=== PATIENT | female | born 1970 | race American Indian/Alaskan Native ===

== ENCOUNTER 2017-05-12 07:38 | Outpatient (CLI) | payer BC ==
--- NOTE | 2017-05-12 14:31 | Mammography Report ---
BILATERAL DIGITAL SCREENING MAMMOGRAM with CAD: 05/12/17 07:38:00 CLINICAL: Routine screening. COMPARISON:05/03/16 and 05/01/15 FINDINGS: The breasts are almost entirely fatty.A right inner asymmetry on the CC view is unchanged compared to the 2015 exam. No mass, architectural distortion or suspicious calcifications. IMPRESSION: No mammographic evidence of malignancy. BI-RADS CATEGORY: 2 -- Benign RECOMMENDATION: Routine mammographic screening in one year. COMMENT: Patient follow-up letters are generated by our [employer] application.
== END 2017-05-12 07:39 | disposition home or self-care (01) ==
LOC: MAMMO 07:38
PROVIDERS: ATTEND Obstetrics & Gynecology
DX: Z12.31 Encounter for screening mammogram for malignant neoplasm of breast (principal)
CPT/HCPCS: 77067; G0202

== ENCOUNTER 2018-06-01 09:14 | Outpatient (CLI) | payer BC ==
--- NOTE | 2018-06-01 14:44 | Mammography Report ---
BILATERAL DIGITAL SCREENING MAMMOGRAM with CAD: 06/01/18 09:14:00 CLINICAL: Routine screening. COMPARISON:05/12/17 FINDINGS: There are scattered areas of fibroglandular density. No mass, architectural distortion or suspicious calcifications. IMPRESSION: No mammographic evidence of malignancy. BI-RADS CATEGORY: 2 -- Benign RECOMMENDATION: Routine mammographic screening in one year. COMMENT: Patient follow-up letters are generated by our [employer] application.
== END 2018-06-01 09:15 | disposition home or self-care (01) ==
LOC: MAMMO 09:14
PROVIDERS: ATTEND Obstetrics & Gynecology
DX: Z12.31 Encounter for screening mammogram for malignant neoplasm of breast (principal)
CPT/HCPCS: 77067

== ENCOUNTER 2020-11-04 07:57 | Outpatient (CLI) | payer BC ==
--- NOTE | 2020-11-04 10:03 | Mammography Report ---
DIGITAL SCREENING MAMMOGRAM WITH CAD, 11/04/2020 CLINICAL INFORMATION / INDICATION: Routine screening mammography. TECHNIQUE: Digital bilateral 2D mammography was obtained in the craniocaudal and mediolateral obliqu e projections. This examination was interpreted with the benefit of Computer-Aided Detection analysis . COMPARISON: 09/18/2019, 06/01/2018 FINDINGS: Breast Density: There are scattered areas of fibroglandular density. No dominant mass, suspicious calcifications, or architectural distortion in either breast. Bilateral benign-appearing calcifications not significantly changed. IMPRESSION: No mammographic evidence of malignancy. Follow up recommendation: Routine yearly BI-RADS Category 2: Benign. A "normal" or negative report should not discourage follow up or biopsy of a clinically significant f inding. A written summary of these findings will be mailed to the patient. The patient will be entered into a mammography reporting system which will generate a reminder letter for the patient's next appointmen t at the appropriate interval. The [employer] recommends yearly mammograms starting at age 40 and continuing as l aylin as a woman is in good health. Breast MRI is recommended for women with an approximate 20-25% or greater lifetime risk of breast cancer, including women with a strong family history of breast or ova beverly cancer or who have been treated for Hodgkin's disease. Signer Name: Zach Aquino MD Signed: 11/04/2020 9:58 AM Workstation Name: [id number]
== END 2020-11-04 07:58 | disposition home or self-care (01) ==
LOC: MAMMO 07:57
PROVIDERS: ATTEND Obstetrics & Gynecology
DX: Z12.31 Encounter for screening mammogram for malignant neoplasm of breast (principal)
CPT/HCPCS: 77067

== ENCOUNTER 2021-01-21 13:38 | Emergency (ER) | payer BC ==
[2021-01-21 13:49] VITALS: BP 135/87
--- NOTE | 2021-01-21 14:06 | XRay Report ---
CHEST 2 VIEWS INDICATION: chest pain. COMPARISON: None FINDINGS: Support devices: None. Heart: Within normal limits. Lungs/pleura: No acute air space or interstitial disease. No pneumothorax. Additional findings: None. IMPRESSION: No acute findings. Signer Name: Jovani Mccoy Jr, MD Signed: 01/21/2021 2:02 PM Workstation Name: [id number]
--- NOTE | 2021-01-21 14:19 | Emergency Department Report ---
<LAMONT SNELL - Last Filed: 01/21/21 15:30> ED Chest Pain HPI - General Chief Complaint: Chest Pain Stated Complaint: CHEST PAIN Time Seen by Provider: 01/21/21 13:43 Source: patient Mode of arrival: Ambulatory Limitations: No Limitations - History of Present Illness Initial Comments: 50-year-old -[place] female patient presents with complaints of left- sided chest pain starting yesterday morning. Patient reports the pain is intermittent and sharp in nature and lasts only a few seconds. She rates the pain as a 7/10 in severity. The pain is not associated with movement, breathing, or exertion per patient. She denies any heavy lifting, chest trauma, cough, shortness of breath, leg pain/swelling, recent long travel, hormone use, loss of taste/smell, or abdominal pain. Past medical history includes hypertension and she states compliance with her blood pressure medications. She denies any personal history or family history of heart disease. Pain radiates to her left shoulder Treatments Prior to Arrival: none - Related Data Home Medications Medication Instructions Recorded Confirmed Last Taken Triamterene/Hydrochlorothiazid 37.5 mg PO DAILY 03/05/19 03/05/19 Unknown [Triamterene-Hctz 37.5-25 mg Tb] Previous Rx's Medication Instructions Recorded Last Taken Type Naproxen 500 mg PO BID #20 tablet 01/21/21 Unknown Rx Allergies Allergy/AdvReac Type Severity Reaction Status Date / Time No Known Allergies Allergy Verified 01/21/21 13:43 Heart Score - HEART Score History: Slightly suspicious EKG: Normal Age: < 45 Risk factors: 1-2 risk factors Troponin: < normal limit HEART Score: 1 ED Review of Systems Constitutional: denies: chills, fever Respiratory: denies: cough, shortness of breath Cardiovascular: chest pain. denies: palpitations Gastrointestinal: denies: abdominal pain, nausea, vomiting Musculoskeletal: denies: back pain Neurological: denies: headache, weakness, numbness, paresthesias, abnormal gait ED Past Medical Hx - Past Medical History Hx Hypertension: Yes Hx Heart Attack/AMI: No Hx Congestive Heart Failure: No Hx Diabetes: No Hx GERD: Yes Hx Renal Disease: No Hx Tuberculosis: No Hx HIV: No - Surgical History Additional Surgical History: BREAST REDUCTION/ C SECTION - Social History Smoking Status: Never Smoker Substance Use Type: Alcohol - Medications Home Medications: Home Medications Medication Instructions Recorded Confirmed Last Taken Type Triamterene/Hydrochlorothiazid 37.5 mg PO DAILY 03/05/19 03/05/19 Unknown History [Triamterene-Hctz 37.5-25 mg Tb] Naproxen 500 mg PO BID #20 tablet 01/21/21 Unknown Rx ED Physical Exam - General Limitations: No Limitations General appearance: alert, in no apparent distress - Head Head exam: Present: atraumatic, normocephalic - Eye Eye exam: Present: normal appearance. Absent: scleral icterus - Neck Neck exam: Present: normal inspection, full ROM - Respiratory Respiratory exam: Present: normal lung sounds bilaterally. Absent: respiratory distress, chest wall tenderness - Cardiovascular Cardiovascular Exam: Present: regular rate, normal rhythm, normal heart sounds - GI/Abdominal GI/Abdominal exam: Present: soft. Absent: tenderness - Extremities Exam Extremities exam: Present: full ROM. Absent: calf tenderness (No swelling or pain noted to legs bilaterally) - Expanded Upper Extremity Exam Left Shoulder Exam: Present: normal inspection - Back Exam Back exam: Present: full ROM - Neurological Exam Neurological exam: Present: alert, oriented X3, normal gait - Psychiatric Psychiatric exam: Present: normal affect, normal mood - Skin Skin exam: Present: warm, dry, intact, normal color. Absent: rash ED Medical Decision Making - Lab Data Result diagrams: 01/21/21 13:58 01/21/21 13:58 - EKG Data EKG shows normal: sinus rhythm Rate: normal - EKG Data Interpretation: normal EKG - Radiology Data Radiology results: report reviewed CHEST 2 VIEWS INDICATION: chest pain. COMPARISON: None FINDINGS: Support devices: None. Heart: Within normal limits. Lungs/pleura: No acute air space or interstitial disease. No pneumothorax. Additional findings: None. IMPRESSION: No acute findings. - Medical Decision Making 50-year-old -[place] female patient presents with complaints of left- sided chest pain starting yesterday morning. Patient reports the pain is intermittent and sharp in nature and lasts only a few seconds. She rates the pain as a 7/10 in severity. The pain is not associated with movement, breathing, or exertion per patient. She denies any heavy lifting, chest trauma, cough, shortness of breath, leg pain/swelling, recent long travel, hormone use, loss of taste/smell, or abdominal pain. Past medical history includes hypert ension and she states compliance with her blood pressure medications. She denies any personal history or family history of heart disease. Pain radiates to her left shoulder. Patient also states she had an annual physical performed 2 days ago by her PCP. ED Disposition Clinical Impression: Nonspecific chest pain Disposition: HOME / SELF CARE / HOMELESS Condition: Stable Instructions: Nonspecific Chest Pain, Adult Additional Instructions: Take Tylenol every 4 hours as needed for pain. Take Naprosyn twice daily with food as needed for pain. Follow-up with your primary care provider this week. Call tomorrow to schedule an appointment. Follow-up with lean manufacturing engineer this week. Call tomorrow to schedule an appointment. See referral information below. Return to the emergency department immediately for new or worsening symptoms. Specifically, return to the emergency department immediately for fever, worsening chest pain, difficulty breathing, palpitations, loss of consciousness, or any other concerns. Prescriptions: Naproxen 500 mg PO BID #20 tablet Referrals: GENESIS CEDENO MD [Staff Physician] - 2-3 Days KAREN PALOMO MD [Staff Physician] - 3-5 Days <HESHAM OBRIEN - Last Filed: 01/21/21 18:56> Heart Score - EKG Read Time Time EKG Completed: 13:47 EKG Read Time: 13:48 ED Review of Systems ROS: Stated complaint: CHEST PAIN Other details as noted in HPI ED Course Vital Signs 01/21/21 13:42 Temperature 99.5 F Pulse Rate 94 H Respiratory 18 Rate Blood Pressure 135/87 O2 Sat by Pulse 98 Oximetry ED Medical Decision Making - Lab Data Result diagrams: 01/21/21 13:58 01/21/21 13:58 - Medical Decision Making Care of patient transferred by Lamont Snell PA-C at change of shift pending repeat troponin. On reevaluation, patient remains stable. Repeat troponin within normal limits. HEART score 2. The patient has none of the following clinical criteria: heart rate >100, room air O2 saturation <94%, history of DVT/PE, recent trauma/surgery, hemoptysis, exogenous hormone use, or signs/symptoms of DVT. As a result, this patient has very low probability of pulmonary embolism and further testing is not indicated. Patient will be discharged home with appropriate analgesics and referral to lean manufacturing engineer for close outpatient follow-up. Patient expressed understanding and is agreeable to plan of care. Strict return precautions provided. Additionally, it has been explained to the patient that the primary purpose of this evaluation was to identify whether or not an acute coronary syndrome was present, and that the results of todays evaluation do not reliably exclude underlying coronary artery disease. Patient expressed understanding and was given the opportunity to ask questions, all of which were satisfactorily answ ered prior to discharge home. Written instructions and appropriate prescriptions/referrals provided. Critical care attestation.: If time is entered above; I have spent that time in minutes in the direct care of this critically ill patient, excluding procedure time. ED Disposition Is pt being admited?: No Does the pt Need Aspirin: No Time of Disposition: 18:55 HEART Score - HEART Score History: Slightly suspicious EKG: Normal Age: 45-65 Risk factors: 1-2 risk factors Troponin: Troponin T < 0.010 ng/mL (0.00-0.029) 01/21/21 17:30 Troponin: < normal limit HEART Score: 2 - Critical Actions Critical Actions: 0-3 pts:0.9-1.7%risk of adverse cardiac event.Candidate for discharge
[2021-01-21 14:41] LABS: Basophils % (Auto) 0.3 % (0.0-1.8); Eosinophils # (Auto) 0.1 K/mm3 (0.0-0.4); Eosinophils % (Auto) 0.8 % (0.0-4.3); Hematocrit 38.9 % (30.3-42.9); Hemoglobin 13.1 gm/dl (10.1-14.3); Lymphocytes # (Auto) 2.5 K/mm3 (1.2-5.4); Lymphocytes % (Auto) 31.9 % (13.4-35.0); Mean Corpuscular HGB Conc 34 % (30-34); Mean Corpuscular Volume 88 fl (79-97); Monocytes # (Auto) 0.7 K/mm3 (0.0-0.8); Monocytes % (Auto) 8.4 % (0.0-7.3); Platelet Count 259 K/mm3 (140-440); Red Blood Count 4.43 M/mm3 (3.65-5.03); Red Cell Distribution Width 14.3 % (13.2-15.2)
[2021-01-21 14:53] LABS: Alanine Aminotransferase 17 units/L (7-56); Albumin 4.4 g/dL (3.9-5); Blood Urea Nitrogen 9 mg/dL (7-17); Calcium 9.8 mg/dL (8.4-10.2); Hemolysis Index 3
[2021-01-21 15:06] LABS: BUN/Creatinine Ratio 13
--- NOTE | 2021-01-22 10:14 | Electrocardiograph Report ---
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
== END 2021-01-21 19:24 | disposition home or self-care (01) ==
LOC: ED 13:38
DX: R07.9 Chest pain, unspecified (principal); I10 Essential (primary) hypertension; K21.9 Gastro-esophageal reflux disease without esophagitis; Z98.890 Other specified postprocedural states
CPT/HCPCS: 36415; 71046; 80053; 84484; 85025; 93005; 99284